=== PATIENT | male | born 1965 | race Caucasian/White ===

== ENCOUNTER → 2017-01-25 | Outpatient (CLI) | payer BC | END | disposition home or self-care (01) | LOC: GMAM 14:06 | PROVIDERS: ATTEND Family Medicine | DX: E04.1 Nontoxic single thyroid nodule (principal); Z00.00 Encounter for general adult medical examination without abnormal findings ==

== ENCOUNTER → 2017-02-01 | Outpatient (CLI) | payer BC ==
--- NOTE | 2017-02-02 09:01 | US ---
EXAM DESCRIPTION: Thyroid CLINICAL HISTORY: NODULE COMPARISON: None. TECHNIQUE: Transcutaneous scannin-dimensional and Doppler modes. FINDINGS: Inferior to the thyroid gland is a palpable mass in the midline subdermal tissues. This mass is hypoechoic to the adjacent tissues with a capsule. No cystic component. Dimensions are 14.7 x 8.7 x 8.3 mm. Questionable Doppler vascularity abutting the capsule but not internally. Right lobe dimensions 5.3 x 1.6 x 1.5 cm. Homogeneous echoes. No cystic, no solid, and no complex lesions. Normal Doppler vascularity. No microcalcifications. Contour right lobe smooth. Juxta-thyroid masses/fluid: none. Left lobe dimensions 5.2 x 2.0 x 1.7 cm. Homogeneous echoes. No cystic, no solid, and no complex lesions. Normal Doppler vascularity. No microcalcifications. Contour left lobe smooth. Juxta-thyroid masses/fluid: none. Isthmus thickness 2.6 mm. Homogeneous echoes. No cystic, no solid, and no complex lesions. Normal Doppler vascularity. Contour smooth. IMPRESSION: 1. Subcutaneous nodule in the anterior midline inferior to the thyroid gland. This could represent a complex sebaceous gland or a follicle or a lymph node. Questionable peripheral vascularity. Consider tissue sampling. 2. Thyroid gland is unremarkable. No other soft tissue masses around the gland. Fine needle aspiration sampling according to best practice guidelines, adopted from ACR white paper and Apple 3-tiered guidelines on incidental thyroid nodules. Please see below.* These recommendations do not apply to patients with increased risk for thyroid cancer or patients with symptomatic thyroid disease. No discrete solid masses, cystic masses, or edema in the surrounding soft tissues. *Further evaluation by thyroid US recommended for: -Solitary incidental thyroid nodule (ITN) with high risk imaging features (locally invasive nodule or suspicious lymph nodes) -Solitary ITN of any size in pediatric patients <= 18 years of age -Solitary ITN >= 1 cm in axial plane in patients between 18 and 35 years of age -Solitary ITN >= 1.5 cm in axial plane in patients >= 35 years of age -Heterogeneous enlarged thyroid gland -ITN avid on FDG-PET or other nuclear medicine (MIBI and octreotide) scans. FNA biopsy is also recommended for PET avid nodules. 2.No f/u imaging is recommended for ITN's not meeting the above criteria. 3.For multiple thyroid nodules, the above recommendations for solitary ITN are to be applied to the largest nodule. 4.No US or f/u recommended for ITN's without high risk features in patients with limited life expectancy or significant co-morbidities, unless clinically warranted. 5.These recommendations do not apply to patients w/ increased risk for thyroid cancer or patients with symptomatic thyroid disease. Recommendations for f/u of Incidental Thyroid Nodules (ITN) found on CT, MR, NM and Extrathyroidal US are based upon the ACR white paper and Apple 3-tiered system for managing ITN's: J Am [facility] 2015 Jun;12(2): 143-50 Electronically signed by: Lane Quinn MD 02/02/2017 8:59 AM CDT
== END ==
LOC: US 09:36
PROVIDERS: ATTEND Family Medicine
DX: E04.1 Nontoxic single thyroid nodule (principal)

== ENCOUNTER → 2018-04-05 | Outpatient (CLI) | payer BC ==
--- NOTE | 2018-04-05 09:07 | RAD ---
EXAM DESCRIPTION: Shoulder,Right 2 or More Views CLINICAL HISTORY: PAIN IN RIGHT SHOULDER COMPARISON: None Available. TECHNIQUE: Four views of the right shoulder. FINDINGS: There is adequate internal and external rotation. Normal alignment on transaxillary view and transscapular Y view. There is no fracture or dislocation. Moderate degenerative changes at the right AC joint with prominent inferiorly projecting osteophyte of the acromion. No focal bone lesion. IMPRESSION: Negative for fracture or dislocation. Electronically signed by: Atul Kurtz MD 04/05/2018 9:06 AM [facility]
== END ==
LOC: RAD 07:57
PROVIDERS: ATTEND Orthopaedic Surgery
DX: M25.511 Pain in right shoulder (principal)

== ENCOUNTER → 2018-04-10 | Outpatient (CLI) | payer BC | LOC: GMAM 11:20 | PROVIDERS: ATTEND Family Medicine | DX: E04.1 Nontoxic single thyroid nodule (principal); K62.5 Hemorrhage of anus and rectum; Z12.5 Encounter for screening for malignant neoplasm of prostate ==

== ENCOUNTER → 2018-04-13 | Outpatient (CLI) | payer BC ==
--- NOTE | 2018-04-14 12:52 | MRI ---
MRI right shoulder without contrast INDICATION: Shoulder pain rotator cuff syndrome TECHNIQUE: Noncontrast MR imaging right shoulder FINDINGS: Severe subacromial and subdeltoid bursitis. Moderate AC joint osteoarthrosis. Subacromial enthesophyte formation. Diffuse bursal surface partial tear distal supraspinatus approaching 50% partial-thickness. No retraction. Small para labral cyst with adjacent posterior superior labral tear Minimal grade 1 marbling throughout the rotator cuff muscle bellies. Subscapularis is intact. No bicep rupture or dislocation. IMPRESSION: Posterior superior labral tear with para labral cyst Moderate to high-grade partial tear bursal surface distal supraspinatus with adjacent severe bursitis Moderate hypertrophic AC joint osteoarthrosis with subacromial enthesophyte Electronically signed by: Anand Gutiérrez MD 04/14/2018 12:50 PM [facility]
== END ==
LOC: MRI 07:00
DX: M75.101 Unspecified rotator cuff tear or rupture of right shoulder, not specified as traumatic (principal); M19.011 Primary osteoarthritis, right shoulder; G93.3 Postviral and related fatigue syndromes; R53.1 Weakness

== ENCOUNTER → 2018-04-20 | Outpatient (CLI) | payer BC | LOC: LAB.O 10:10 | PROVIDERS: ATTEND Orthopaedic Surgery | DX: Z01.818 Encounter for other preprocedural examination (principal) ==

== ENCOUNTER 2018-05-04 05:53 | Day surgery (SDC) | payer BC ==
--- NOTE | 2018-05-03 09:27 | HP ---
CHIEF COMPLAINT: Right shoulder pain. HISTORY OF PRESENT ILLNESS: Mr. Fontana is a 52-year-old male with a history of pain in the shoulder secondary to arthritic changes at the acromioclavicular joint which have precipitated a rotator cuff tear. Because of this, he has requested operative intervention. After discussing the risks, benefits and alternatives to that, he has given informed consent. PAST SURGICAL HISTORY: None. MEDICATIONS: None. ALLERGIES: NO KNOWN DRUG ALLERGIES. CODE STATUS: Full code. IMMUNIZATIONS: Up to date. FAMILY HISTORY: None pertinent to today's complaint. SOCIAL HISTORY: The patient does not smoke or use any illicit drugs. He does drink on occasion. REVIEW OF SYSTEMS: Negative except as indicated in the History of Present Illness. PHYSICAL EXAMINATION: VITAL SIGNS: Blood pressure 157/89. Pulse 71. Height 6'2". Weight 220 pounds. MENTAL STATUS: The patient is awake, alert, and is able to give a good history and participate in the physical. The patient is oriented to person, place and time. SKIN: Normal tone and turgor. MUSCULOSKELETAL: He has severe tenderness to palpation over the acromioclavicular joint as well as subacromial space. He has warm and well perfused extremity. Sensation is intact. Strength is 5/5. He maintains full abduction and full forward flexion although severe pain with both at the maximum. He has pain with resisted abduction and forward flexion. He has pain with cross-chest adduction during internal and external rotation with the shoulder in flexion. IMAGING: X-rays show severe arthritis of the acromioclavicular joint with osteophyte formation. MRI has confirmed that as well as tear in the rotator cuff. ASSESSMENT: 1. Rotator cuff tear. 2. Impingement. PLAN: The plan at this point is for rotator cuff repair. We have discussed the risks, benefits, and alternatives to that and the patient has given informed consent. #[id number] [facility]
[~2018-05-04 05:53] MED LIST: LACTATED RINGERS 1,000 ML ONE; SODIUM CHL 0.9% 100ML MINI-BAG 100 ML IVPB ONE; ceFAZolin SODIUM 1 GM VIAL ONE
[2018-05-04] MEDS ORDERED: ACETAMINOPHEN IV 1000MG 100 ML ONE (06:15)
[2018-05-04] MEDS ORDERED: BUPIVACAINE 0.5% 30 ML VIAL INJ ONE (06:15)
[2018-05-04] MEDS ORDERED: MIDAZOLAM INJ 5 MG/5 ML VIAL ONE (06:15)
[2018-05-04] MEDS ORDERED: ROCURONIUM BROMIDE 10 MG/ML VIAL ONE (06:15)
[2018-05-04] MEDS ORDERED: fentaNYL CITRATE INJ 50 MCG/ML AMP ONE (06:15)
[2018-05-04] MEDS ORDERED: BUPIVACAINE LIPOSOME 13.3 MG/ML VIAL INJ ONE ×2 (06:16→06:34)
[2018-05-04] MEDS: ceFAZolin SODIUM 1 GM VIAL ONE ×2 (07:50→08:33)
[2018-05-04] MEDS: VANCOMYCIN HCL INJ 1,000 MG VIAL IVPB ONE ×2 (07:50→08:33)
[2018-05-04] MEDS ORDERED: LIDOCAINE 1% 10 ML VIAL INJ ONE (10:00)
[2018-05-04] MEDS ORDERED: METOCLOPRAMIDE HCL INJ 10 MG/2 ML VIAL IV ONE (10:00)
[2018-05-04] MEDS ORDERED: raNITIdine HCL INJ 25 MG/ML VIAL IV ONE (10:00)
[2018-05-04] MEDS ORDERED: PROPOFOL 200 MG/20 ML VIAL IV ONE (10:00)
[2018-05-04 11:38] VITALS: BP 107/70; TEMP 97.6; O2SAT 95
--- NOTE | 2018-05-10 08:58 | OP ---
DATE OF PROCEDURE: 05/04/18 PREOPERATIVE DIAGNOSIS: 1. Impingement. 2. Rotator cuff tear. POSTOPERATIVE DIAGNOSIS: 1. Impingement. 2. Rotator cuff tear. PROCEDURE: 1. Rotator cuff repair. 2. Subacromial decompression and distal clavicle resection. SURGEON: Neil Hines MD. SOUND CUTTER: Lane Angel CST, -[place]. ANESTHESIA: General anesthesia. COMPLICATIONS: None. FINDINGS: 1. Large overhanging osteophyte at the acromion. 2. Acromioclavicular arthritis. 3. Full thickness rotator cuff tear involving the anterior aspect of the supraspinatus, measuring slightly over 1 cm. 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 He developed shoulder pain quite a while back and has failed conservative measures. MRI of the shoulder revealed the above findings. Because of the failure of conservative measures, we talked about the risks, benefits and alternatives to operative therapy. He has given informed consent for that. PROCEDURE: The patient was brought to the Operating Room and placed in the supine position. General anesthesia was induced and the patient was transitioned into the beach chair position. The arm and shoulder were sterilely prepped and draped. Following prepping and draping, an incision was made at the lateral border of the acromion. Full thickness skin flaps were developed and the deltoid was identified. The interval between the anterior and middle heads was split and dissection was carried down to the bursa. A complete bursectomy was performed followed by removal of overhanging osteophytes from the acromion. The rotator cuff was identified. Following removal of the osteophytes and identification of the rotator cuff, the end of the supraspinatus was debrided. Subsequent to that, the footprint of the supraspinatus was debrided. A double- loaded suture anchor was used to reapproximate the supraspinatus in an anatomic fashion. The arm was taken through a range of motion and there was no gross motion of the rotator cuff musculature or undue tension on the repair. The wound was thoroughly irrigated and the heads of the deltoid were reapproximated. The acromioclavicular joint was then identified. Following identification of the joint, full thickness periosteal flaps were developed. Following development of periosteal flaps, the distal about 7 to 8 mm of clavicle were removed. The bony debris was cleared and the wound was irrigated. The periosteum was reapproximated. Following reapproximation of the flaps, the wound was closed with a combination of running and interrupted subcuticular stitches as well as Nylon suture. Sterile dressings were placed. The patient was placed in a sling. The patient was awoken from anesthesia and taken to Recovery. POSTOPERATIVE PLAN: He will be limited with regards to range of motion. He will followup with us in about two days. #[id number] [facility]
== END 2018-05-04 11:30 | disposition home or self-care (01) ==
LOC: AMB 05:53
PROVIDERS: ATTEND Orthopaedic Surgery
DX: M75.41 Impingement syndrome of right shoulder (principal); M75.101 Unspecified rotator cuff tear or rupture of right shoulder, not specified as traumatic
CPT/HCPCS: 00450; 23120; 23420; 36415; 80048; 80307; 85025; 93005; J0690; J2250; J2765; J2780; J3010; J3370; J3490; J7050; J7120

== ENCOUNTER → 2019-01-24 | Outpatient (CLI) | payer BC ==
--- NOTE | 2019-01-25 11:33 | RAD ---
EXAM DESCRIPTION: Radiographs of the right Shoulder:XR/CR/DR CLINICAL HISTORY: SHOULDER PAIN COMPARISON: MRI right shoulder April 2018. Radiographs right shoulder March 2018. TECHNIQUE: 4 views. Internal and External rotation. Scapular "Y" image. Axillary view: right shoulder. FINDINGS: No fracture right shoulder. Normal bone density. AC joint marginal spurs particularly inferior encroaching on the supraspinatus tendon outlet. Lytic region at the epiphysis/anatomic neck of the humeral head only seen on the internal rotation image. This may be related to rotator cuff tendon insertion. Corticated on the axillary view. Glenohumeral joint unremarkable. No abnormal radiodense objects in the soft tissues or joint spaces. IMPRESSION: 1. Arthrosis and deformity in the right AC joint with inferior marginal spur at the acromion facet which may be encroaching on the supraspinatus tendon outlet. Stable since March 2018. 2. Lytic region at the anatomical neck of the anterior right humeral head stable since the prior shoulder radiographs March 2018. Appears well-corticated and could be related to traction changes of the supraspinatus tendon. Does not have a cystic appearance on prior MRI scan, but appears more erosive. Electronically signed by: Lane Quinn MD 01/25/2019 11:32 AM CDT
== END ==
LOC: RAD 10:50
PROVIDERS: ATTEND Orthopaedic Surgery
DX: M19.011 Primary osteoarthritis, right shoulder (principal); M21.921 Unspecified acquired deformity of right upper arm; M75.81 Other shoulder lesions, right shoulder

== ENCOUNTER → 2019-02-04 | Outpatient (CLI) | payer BC ==
--- NOTE | 2019-02-04 16:41 | US ---
US THYROID CLINICAL STATEMENT: NONTOXIC SINGLE THYROID NODULE. COMPARISON: None TECHNIQUE: Transcutaneous scanning, grayscale and Doppler modes. FINDINGS: Size right thyroid lobe: 6.1 x 1.8 x 1.6 cm Size left thyroid lobe: 5.7 x 1.6 x 1.6 cm Size isthmus: 0.33 cm Estimated total number of nodules greater than or equal to 1 cm: None.. Bilateral lobes and isthmus are heterogeneous. Normal vascularity. No dominant solid mass or distinct cyst or large calcifications. No overlying skin changes. No dominant solid mass or distinct cyst in the surrounding soft tissues. IMPRESSION: 1. Heterogeneous thyroid gland mildly enlarged with normal vascularity. No nodules, calcifications, or cysts. 2. Soft tissue around the thyroid gland is unremarkable. *ACR TI-RADS 2017 Recommendations for imaging follow-up of nodules: TR1: No FNA or follow up TR2: No FNA or follow up TR3: FNA if >/= 2.5 cm, follow up if 1.5 - 2.4 cm in 1, 3, and 5 years TR4: FNA if >/= 1.5 cm, follow up if 1.0 - 1.4 cm in 1, 2, 3, and 5 years TR5: FNA if >/= 1.0 cm, follow up if 0.5 - 0.9 cm every year for 5 years ACR TI-RADS recommends that no more than two nodules with the highest ACR TI-RADS total point should be biopsied and no more than four nodules should be followed. These recommendations do not apply to patients with increased risk for thyroid cancer or patients with symptomatic thyroid disease. Electronically signed by: Lane Quinn MD 02/04/2019 4:39 PM CDT
== END ==
LOC: US 08:00
PROVIDERS: ATTEND Family Medicine
DX: E04.1 Nontoxic single thyroid nodule (principal)

== ENCOUNTER → 2019-02-06 | Outpatient (CLI) | payer BC ==
--- NOTE | 2019-02-07 08:18 | MRI ---
Study: MRI of the Right Shoulder. Indication: UNSPECIFIED ROTATOR CUFF TEAR OR RUPTURE RIGHT SHOULDER Technique: Multiplanar, multi sequence MRI of the right shoulder was obtained without intravenous contrast. Comparison: April 13, 2018. Findings: Distal clavicular resection and subacromial decompression noted. Hypertrophic changes of the AC joint noted with significant edema in the distal clavicular head and acromion. Small-volume subacromial/subdeltoid bursal fluid. Interval rotator cuff tendon repair with placement with at least 2 suture anchors in the anterior to mid greater tuberosity. Supraspinatus and infraspinatus tendinosis. Poor definition of the articular fibers of the insertional and critical zone of the mid supraspinatus tendon. Irregular intermediate to high grade recurrent articular tearing suspected at this site with the involved area measures 16 mm transverse by 12 mm AP. No full-thickness extension or tendon retraction. Subscapularis tendinosis and low-grade attenuation. Teres minor tendon intact. Mild atrophy and grade 1 fatty infiltration supraspinatus muscle belly. Intracapsular long head biceps tendinosis. Circumferential labral truncation and and fraying with changes most pronounced superiorly. Minimal glenohumeral joint osteoarthritis. Fracture. Thickening and edema inferior glenohumeral ligament which can be seen with adhesive capsulitis. Impression: Supraspinatus and infraspinatus tendinosis with recurrent irregular intermediate to high grade articular tearing of the mid supraspinatus tendon insertion and critical zone. Subscapularis tendinosis and low-grade attenuation. Mild atrophy and grade 1 fatty infiltration supraspinatus muscle belly. Long head biceps tendinosis. Circumferential labral truncation and fraying, most pronounced superiorly. Minimal glenohumeral joint osteoarthritis. Adhesive capsulitis. Distal clavicular resection and subacromial decompression noted. Hypertrophic changes about the AC joint noted with marrow edema in the clavicle and acromion. Electronically signed by: Adithya Coreas MD 02/07/2019 8:17 AM CDT
== END ==
LOC: MRI 07:07
PROVIDERS: ATTEND Orthopaedic Surgery
DX: M75.101 Unspecified rotator cuff tear or rupture of right shoulder, not specified as traumatic (principal); M65.811 Other synovitis and tenosynovitis, right shoulder; M75.21 Bicipital tendinitis, right shoulder; M19.011 Primary osteoarthritis, right shoulder; Z98.890 Other specified postprocedural states

== ENCOUNTER → 2019-02-13 | Outpatient (CLI) | payer BC | LOC: GMAM 10:39 | PROVIDERS: ATTEND Family Medicine | DX: R10.817 Generalized abdominal tenderness (principal) ==

== ENCOUNTER → 2019-04-17 | Outpatient (CLI) | payer BC ==
--- NOTE | 2019-04-17 15:29 | MRI ---
EXAM DESCRIPTION: Lumbar Spine w/o Contrast : [facility]. CLINICAL HISTORY: LOW BACK PAIN COMPARISON: Lumbar radiographs 15 April. TECHNIQUE: Multiplanar, multiple standard sequences, non contrast MRI, lumbar spine. FINDINGS: L5-S1: The disc is well visualized on axial T2 series 501, image 3. L5-S1 disc with normal signal and disc space maintained. Tiny posterior midline bulge. Posterior elements unremarkable. Mild bilateral foraminal narrowing more on the left. L4-L5: Minimal disc desiccation and minimal disc space loss. Tiny posterior midline bulge. Posterior elements unremarkable. Mild bilateral foraminal narrowing more on the right with the disc almost abutting the nerve. L3-L4: Normal signal in the disc and disc space maintained. Small divot in the superior L4 endplate but no marrow edema. Minimal thickening of the posterior ligaments and minimal canal narrowing. Facet joints are unremarkable. Bilateral mild foraminal narrowing. L2-L3: Moderate anterior endplate reactive changes with anterior endplate ridging and bulging disc. Also minimal disc space loss. Remainder of the disc and disc space are unremarkable. Bilateral posterior ligament thickening with mild canal narrowing. Bilateral foramina are patent. L1-L2: Anterior disc desiccation. Schmorl's node in the inferior endplate anterior aspect but no marrow edema. Remainder of the disc with normal signal and no posterior bulging. Minimal thickening of the posterior ligaments and minimal canal narrowing. Bilateral foramina are patent. T12-L1: Normal signal in the disc with disc space maintained. No bulging. Canal and bilateral foramina are patent. Conus terminates at this level. No scoliosis Paravertebral soft tissues showing 2 cm cyst medial cortex right kidney.. Distal cord normal signal and caliber. Normal marrow signal in the remaining vertebral bodies and the posterior elements. Vertebral bodies are not compressed at any level. IMPRESSION: 1. Spondylosis at some levels anteriorly affecting the disc and the endplates. Predominantly at L2-L3. Also L1-L2. 2. Posterior flavum ligament thickening at almost every level contributing to canal narrowing. No canal or foraminal stenosis. Minimal degenerative hypertrophic changes in the facet joints. 3. Desiccation of multiple discs with no significant disc bulging or herniation. 4. 2 cm cyst medial cortex right kidney. Electronically signed by: Lane Quinn MD 04/17/2019 3:27 PM [facility]
== END ==
LOC: MRI 12:45
PROVIDERS: ATTEND Family Medicine
DX: M51.36 Other intervertebral disc degeneration, lumbar region (principal); M47.896 Other spondylosis, lumbar region; N28.1 Cyst of kidney, acquired

== ENCOUNTER → 2020-05-07 | Outpatient (CLI) | payer BC | LOC: GMAM 12:35 | PROVIDERS: ATTEND Family Medicine | DX: Z00.00 Encounter for general adult medical examination without abnormal findings (principal); E55.9 Vitamin D deficiency, unspecified ==

== ENCOUNTER → 2020-06-01 | Outpatient (CLI) | payer BC ==
--- NOTE | 2020-06-02 11:50 | MRI ---
EXAM DESCRIPTION: Lumbar Spine w/o Contrast : Magnetic Resonance Imaging. CLINICAL HISTORY: LUMBAR RADICULOPATHY COMPARISON: MRI lumbar spine April 2019. TECHNIQUE: Multiplanar, multiple standard sequences, non contrast MRI, lumbar spine. FINDINGS: L5-S1: The disc is well visualized on axial T2 series 501, image 3. L5-S1 disc space maintained with normal signal in the disc. Small divot in the superior S1 endplate without edema. Tiny posterior bulge. Canal is patent. Posterior flavum ligaments and facet joints (canal elements) are unremarkable. Mild to moderate left foraminal narrowing and mild right foraminal narrowing. Disc and endplate are abutting the left L5 nerve in the left foramen. No change from the prior study. L4-L5: Disc desiccation and disc space loss. Disc and endplate spurs are abutting the right L4 nerve in the foramen which is moderately narrowed. Mild narrowing of the left foramen. Minimal hypertrophy of the canal elements. AP canal diameter 13 mm. Stable since the prior study. L3-L4: Disc space maintained with normal signal in the disc. Minimal hypertrophy of the canal elements. AP canal diameter 14 mm. Minimal narrowing of the left foramen with right foramen patent. No interval change. L2-L3: Disc desiccation and disc space loss. Anterior Modic type I endplate reactive change on the superior L3 endplate with both endplates demonstrating anterior plate bridging and disc bulging. Minimal posterior disc bulge. Hypertrophic changes in the canal elements. AP canal diameter 12.5 mm. Bilateral mild foraminal narrowing. No change from the prior study. L1-L2: Disc desiccation and minimal disc space loss. Anterior component Schmorl's node defect inferior L1. No posterior bulging. Minimal hypertrophy of the canal elements. L2-L5 dextroscoliosis. Paravertebral soft tissues negative. Distal cord normal signal and caliber. Otherwise normal marrow signal in the remaining vertebral bodies and the posterior elements. Vertebral bodies are not compressed at any level. IMPRESSION: 1. Minimal disc desiccation and hypertrophy in the posterior flavum ligaments and facet joints at multiple levels. 2. Spondylosis L2-L3 with disc space narrowing. Minimal canal and foraminal narrowing. Stable since the prior study. 3. Disc and endplate L5-S1 are bulging into the left foramen abutting the exiting left L5 nerve. No interval change. 4. Please refer to FINDINGS for discussion of results at other disc space levels. Electronically signed by: Lane Quinn MD 06/02/2020 11:48 AM [facility]
== END ==
LOC: MRI 09:07
PROVIDERS: ATTEND Chiropractor
DX: M51.16 Intervertebral disc disorders with radiculopathy, lumbar region (principal); M51.17 Intervertebral disc disorders with radiculopathy, lumbosacral region; M47.26 Other spondylosis with radiculopathy, lumbar region; M48.061 Spinal stenosis, lumbar region without neurogenic claudication